=== PATIENT | female | born 2000 | race Caucasian/White ===

== ENCOUNTER 2022-04-06 13:36 | Inpatient (IN) | payer BC ==
[~2022-04-06] VITALS: Ht 162.6 cm; Wt 62.5 kg
[2022-04-06 14:44] LABS: HEMATOCRIT 35.7 % (36.0-47.0); HEMOGLOBIN 11.9 g/dl (12.0-15.5); MEAN CORPUSCULAR HEMOGLOBIN 30.1 pg (27.0-33.0); MEAN CORPUSCULAR HGB CONC 33.3 g/dl (32.0-36.5); MEAN CORPUSCULAR VOLUME 90.4 fl (80.0-96.0); PLATELET COUNT, AUTOMATED 185 10^3/uL (150-450); RED BLOOD COUNT 3.95 10^6/uL (4.00-5.40); WHITE BLOOD COUNT 9.7 10^3/uL (4.0-10.0)
[2022-04-06 15:15] LABS: HCG, SERUM QUALITATIVE POSITIVE (NEGATIVE)
[2022-04-06 15:17] LABS: AMPHETAMINES LEVEL URINE NEGATIVE (NEGATIVE); BARBITURATES URINE NEGATIVE (NEGATIVE); BENZODIAZEPINES URINE NEGATIVE (NEGATIVE); CANNABINOIDS URINE NEGATIVE (NEGATIVE); COCAINE METABOLITE URINE NEGATIVE (NEGATIVE); METHADONE URINE NEGATIVE (NEGATIVE); OPIATES URINE NEGATIVE (NEGATIVE); PHENCYCLIDINE URINE NEGATIVE (NEGATIVE)
[2022-04-06 15:19] LABS: RSV AMPLIFICATION NEGATIVE (NEGATIVE)
[2022-04-06 15:22] LABS: ALBUMIN 3.3 GM/DL (3.2-5.2); ALT/SGPT 13 U/L (12-78); BILIRUBIN,DIRECT 0.2 MG/DL (0.0-0.2); BILIRUBIN,TOTAL 0.5 MG/DL (0.2-1.0); BLOOD UREA NITROGEN 4 MG/DL (7-18); CARBON DIOXIDE LEVEL 24 MEQ/L (21-32); CHLORIDE LEVEL 106 MEQ/L (98-107); CREATININE FOR GFR 0.53 MG/DL (0.55-1.30); ETHYL ALCOHOL (ETHANOL) < 0.003 % (0.000-0.010); GLOMERULAR FILTRATION RATE > 60.0 (>60); GLUCOSE, FASTING 65 MG/DL (70-100); POTASSIUM SERUM 4.1 MEQ/L (3.5-5.1); SALICYLATE LEVEL < 1.7 MG/DL (5.0-30.0); SODIUM LEVEL 137 MEQ/L (136-145); THYROID STIMULATING HORMONE 0.271 uIU/ML (0.358-3.740); TOTAL PROTEIN 6.7 GM/DL (6.4-8.2)
[2022-04-06] MEDS ORDERED: LEXA1TAB2 PO (16:00)
[2022-04-06] MEDS ORDERED: PRAZ2CAP PO (16:00)
[2022-04-06] MEDS ORDERED: BUSP5TA PO (16:00)
[2022-04-06 16:07] LABS: ACETAMINOPHEN LEVEL < 2.0 UG/ML (10.0-30.0)
[2022-04-06] MEDS ORDERED: PREN1TAB18 PO (20:37)
[2022-04-06] MEDS ORDERED: HOME MED LIST COMPLETE! XX SCH (20:40)
[2022-04-07] MEDS: busPIRone 5 MG TAB PO SCH ×2 (12:15→20:56)
[2022-04-07] MEDS ORDERED: PRAZOSIN 1 MG CAP PO SCH (21:00)
[2022-04-08] MEDS: NICOTINE 21MG/24HR 1 EA TRANSDERMAL TD SCH (09:00)
[2022-04-08] MEDS: busPIRone 5 MG TAB PO SCH ×2 (13:15→22:04)
[2022-04-08] MEDS ORDERED: IBUPROFEN 400MG TAB PO PRN (14:25)
[2022-04-08] MEDS ORDERED: MOM 30ML SUSPENSION UDC PO PRN (14:25)
[2022-04-08] MEDS ORDERED: MAALOX 30 ML SUSP *UDC PO PRN (14:25)
[2022-04-08] MEDS ORDERED: PRAZOSIN 1 MG CAP PO SCH (21:00)
[2022-04-08] MEDS: PRENATAL VITAMINS CHEWABLE TABLET PO SCH (22:03)
[2022-04-09 06:00] VITALS: BP 89/49
[2022-04-09] MEDS: NICOTINE 21MG/24HR 1 EA TRANSDERMAL TD SCH (09:00)
[2022-04-09] MEDS ORDERED: ESCITALOPRAM OXALATE 10 MG TAB (LEXAPRO) PO SCH (09:00)
[2022-04-09] MEDS: busPIRone 5 MG TAB PO SCH ×2 (10:05→21:44)
[2022-04-09] MEDS: FLUoxetine 20MG CAP PO SCH (10:06)
[2022-04-09 17:08] VITALS: BP_SYST 135; BP_SYST 141; BP_DIAS 70; BP_DIAS 95
[2022-04-09] MEDS: PRAZOSIN 1 MG CAP PO SCH (21:44)
[2022-04-09] MEDS: PRENATAL VITAMINS CHEWABLE TABLET PO SCH (21:44)
[2022-04-10 06:39] VITALS: BP 96/57
[2022-04-10] MEDS: NICOTINE 21MG/24HR 1 EA TRANSDERMAL TD SCH (09:00)
[2022-04-10] MEDS: busPIRone 5 MG TAB PO SCH (09:11)
[2022-04-10] MEDS: FLUoxetine 20MG CAP PO SCH (09:11)
[2022-04-10 17:24] VITALS: BP 135/72
[2022-04-10] MEDS: PRENATAL VITAMINS CHEWABLE TABLET PO SCH (21:43)
[2022-04-10] MEDS: busPIRone 10 MG TAB PO SCH (21:44)
[2022-04-10] MEDS: PRAZOSIN 1 MG CAP PO SCH (21:44)
[2022-04-11 06:00] VITALS: BP 117/64
[2022-04-11] MEDS: NICOTINE 21MG/24HR 1 EA TRANSDERMAL TD SCH (09:00)
[2022-04-11] MEDS: FLUoxetine 20MG CAP PO SCH (09:37)
[2022-04-11] MEDS: busPIRone 10 MG TAB PO SCH ×2 (09:37→21:01)
[2022-04-11 18:11] VITALS: BP 126/77
[2022-04-11 21:01] VITALS: BP 129/78
[2022-04-11] MEDS: PRENATAL VITAMINS CHEWABLE TABLET PO SCH (21:01)
[2022-04-11] MEDS: PRAZOSIN 1 MG CAP PO SCH (21:01)
[2022-04-12 06:40] VITALS: BP 115/57
[2022-04-12] MEDS: NICOTINE 21MG/24HR 1 EA TRANSDERMAL TD SCH (09:00)
[2022-04-12] MEDS: FLUoxetine 20MG CAP PO SCH (09:25)
[2022-04-12] MEDS: busPIRone 10 MG TAB PO SCH (09:25)
[2022-04-12] MEDS ORDERED: MINI1CAP PO (11:46)
[2022-04-12] MEDS ORDERED: FLUO20CA22 PO (11:46)
[2022-04-12] MEDS ORDERED: BUSP10TA PO (11:46)
== END 2022-04-12 13:50 | disposition home or self-care (01) | DRG 751 ==
LOC: M ED 13:36 → M ED INP 04-08 14:23 → M PSY 04-08 17:19
PROVIDERS: ADMIT Student in an Organized Health Care Education/Training Program; ATTEND Student in an Organized Health Care Education/Training Program
DX: F33.0 Major depressive disorder, recurrent, mild (principal); F43.9 Reaction to severe stress, unspecified; F60.89 Other specific personality disorders; Z63.0 Problems in relationship with spouse or partner; R45.851 Suicidal ideations; Z20.822 Contact with and (suspected) exposure to COVID-19